=== PATIENT | female | born 1990 | race Asian ===

== ENCOUNTER → 2017-11-21 | Outpatient (CLI) | payer BC | LOC: CLAB 11:00 | PROVIDERS: ATTEND Obstetrics & Gynecology | DX: Z32.00 Encounter for pregnancy test, result unknown (principal) | CPT/HCPCS: 36415; 84702 ==

== ENCOUNTER → 2017-11-25 | Outpatient (CLI) | payer BC | LOC: CLAB 07:08 | PROVIDERS: ATTEND Obstetrics & Gynecology | DX: O03.4 Incomplete spontaneous abortion without complication (principal) | CPT/HCPCS: 36415; 84702 ==

== ENCOUNTER → 2017-12-02 | Outpatient (CLI) | payer BC | LOC: CLAB 13:05 | PROVIDERS: ATTEND Obstetrics & Gynecology | DX: O02.1 Missed abortion (principal) | CPT/HCPCS: 36415; 84702 ==

== ENCOUNTER → 2017-12-09 | Outpatient (CLI) | payer BC | LOC: CLAB 06:38 | PROVIDERS: ATTEND Obstetrics & Gynecology | DX: O02.1 Missed abortion (principal) | CPT/HCPCS: 36415; 84702 ==

== ENCOUNTER → 2017-12-16 | Outpatient (CLI) | payer BC | LOC: CLAB 06:34 | PROVIDERS: ATTEND Family Medicine | DX: O02.1 Missed abortion (principal) | CPT/HCPCS: 36415; 84702 ==

== ENCOUNTER → 2017-12-23 | Outpatient (CLI) | payer BC | LOC: CLAB 15:18 | PROVIDERS: ATTEND Obstetrics & Gynecology | DX: O02.1 Missed abortion (principal) | CPT/HCPCS: 36415; 84702 ==

== ENCOUNTER 2018-10-13 18:00 | Inpatient (IN) ==
[2018-10-13] MEDS ORDERED: Sod Chloride 0.9% Inj 1,000 ML IV.CONT PRN (19:26)
[2018-10-13] MEDS ORDERED: Sodium Chlor 0.9% Inj 500 ML IV.SIG PRN (19:26)
[2018-10-13] MEDS ORDERED: fentaNYL Citrate Inj 100 MCG/2 ML Ampul IV.PUSH PRN (19:26)
[2018-10-13] MEDS ORDERED: Citric Acid/Sodium Citrate Liq 30 ML UDC PO SCH (19:30)
[2018-10-13 19:33] LABS: Baso % (Auto) 0.2 % (0.0-2.0); Eos % (Auto) 0.1 % (0.0-4.0); Hematocrit 38.8 % (35.0-46.0); Hemoglobin 13.5 gm/dL (11.6-15.3); Lymph # (Auto) 1.8 th/mm3 (1.0-4.8); Lymph % (Auto) 25.9 % (9.0-44.0); Mean Corpuscular HGB Conc 34.9 % (32.0-36.0); Mean Corpuscular Hemoglobin 31.8 pg (27.0-34.0); Mean Corpuscular Volume 91.2 fL (80.0-100.0); Mean Platelet Volume 11.3 fL (7.0-11.0); Mono # (Auto) 0.6 th/mm3 (0.0-0.9); Mono % (Auto) 7.8 % (0.0-8.0); Neut # (Auto) 4.7 th/mm3 (1.8-7.7); Platelet Count 134 th/mm3 (150-450); Red Blood Count 4.25 mil/mm3 (4.00-5.30); Red Cell Distribution Width 13.9 % (11.6-17.2); White Blood Count 7.1 th/mm3 (4.0-11.0)
[2018-10-13 19:49] LABS: Bacteria,Urine Occasional /hpf; Bilirubin,Urine Negative (Negative); Calcium Oxalate Crystals,Urine Occasional /hpf; Clarity,Urine Cloudy (Clear); Color,Urine Yellow (Yellw/Straw); Glucose,Urine (UA) 500 or Greater mg/dL (Negative); Leukocyte Esterase,Urine Small (Negative); Mucus,Urine Few /lpf (Occasional); Nitrite,Urine Negative (Negative); Squamous Epithelial Cell,Urine 23 /hpf (0-5)
[2018-10-13 19:51] LABS: Urobilinogen,Urine 0.2 mg/dL (Less than 2)
[2018-10-13] MEDS ORDERED: Oxytocin 30 Units/500ml Premix 30 UNITS/500 ML BAG IV.SIG ONE (20:00)
[2018-10-14] MEDS ORDERED: Morphine Sulfate PF Inj 5 MG/10 ML Ampul ONE (03:56)
[2018-10-14] MEDS ORDERED: Oxytocin 30 Units/500ml Premix 30 UNITS/500 ML BAG IV.CONT PRN ×2 (06:10→12:00)
[2018-10-14] MEDS: fentaNYL Citrate Inj 100 MCG/2 ML Ampul IV.PUSH PRN ×2 (06:48→07:49)
--- NOTE | 2018-10-14 07:55 | MH ---
cc: Manuel Vazquez MD DATE OF ADMISSION: 10/13/2018 ADMITTING DIAGNOSIS: Term . HISTORY OF PRESENT ILLNESS: The patient is a 27-year-old , Citizen Of [place] female, para 0-0-1-0, with LMP of 01/08/2018, EDC of 10/15/2018. Patient now admitted for induction per request. PAST SURGICAL HISTORY: Breast augmentation in 2014. MEDICATIONS: Vitamins. ALLERGIES: NONE. TRANSFUSIONS: None. OBSTETRIC HISTORY: Ectopic treated in November 2017 with methotrexate. SOCIAL HISTORY: She is . She is a dentist. Alcohol, tobacco and drugs are none. FAMILY HISTORY: Noncontributory. REVIEW OF SYSTEMS: Negative. PHYSICAL EXAMINATION: GENERAL: She is a well-nourished, well-developed, Citizen [place] female. VITAL SIGNS: Stable. HEENT: Normal. CHEST: Clear. HEART: Regular rate. BREASTS: Symmetrical. ABDOMEN: Gravid. EFW is about 2800 grams. PELVIC: Cervix is closed, but soft. EXTREMITIES: Normal. ASSESSMENT: As above. She is now admitted for Cervidil tonight and Pitocin tomorrow. Her strep culture is negative. Should she have failure to progress or distress, she is aware she may need a delivery. Patient elects to proceed. Manuel Vazquez MD JAW/es , 03:42 PM , 03:47 PM
[2018-10-14] MEDS ORDERED: fentaNYL 2MCG-Bupiv 0.125% Epi 150 ML EPIDURAL ONE (08:28)
[2018-10-14] MEDS ORDERED: Lidocaine PF 1% Inj 5 ML Vial ONE (09:12)
[2018-10-14] MEDS ORDERED: Sodium Chlor 0.9% Inj 10 ML ONE (09:12)
[2018-10-14] MEDS ORDERED: Lidocaaine 1.5%/Epinephrine 1:200,000 PF Inj 5 ML Amp ONE (09:12)
[2018-10-14] MEDS ORDERED: Naloxone Inj 0.4 MG/ML Vial IV.PUSH PRN (11:02)
[2018-10-14] MEDS ORDERED: Benzocaine 20% Top Spray 60 ML Can TOPICAL PRN (11:02)
[2018-10-14] MEDS ORDERED: Bisacodyl 10 MG Supp RECTAL PRN (11:02)
[2018-10-14] MEDS ORDERED: Acetaminophen 325 MG Tablet PO PRN (11:02)
[2018-10-14] MEDS ORDERED: Witch Hazel 50%/Glyderin 12.5% 40 Pad Jar RECTAL PRN (11:02)
--- NOTE | 2018-10-14 11:27 | MP ---
cc: Manuel Vazquez MD DATE OF OPERATION: 10/14/2018 INDICATIONS: The patient is a 27-year-old, , [place] female, para 0-0-1-0, admitted at term for induction per request. She received epidural anesthesia, progressed to a spontaneous vaginal delivery over a small midline episiotomy with a valve vigorous male, Apgars 8 and 9, weight 6 pounds 8 ounces. Following delivery of the head the mouth was suctioned, nuchal cord reduced, and delivered easily. The baby was placed on the mom's abdomen. Cord clamped and cut. Cord blood collected for preservation per patient request and cord segment for preservation. Cord blood saved for typing. Placenta delivered intact 3 vessels. The small episiotomy repaired in layers, 2-0 chromic. A small left perivaginal tear is repaired with a running 3-0 Vicryl post. Inspection revealed intact vagina, perineum, and cervix with no bleeding. Uterus was U -3 firm. Counts were correct. ESTIMATED BLOOD LOSS: About 300 mL. Manuel Vazquez MD [facility]/ , 11:05 AM , 11:12 AM
[2018-10-14] MEDS ORDERED: fentaNYL 2MCG-Bupiv 0.125% Epi 150 ML EPIDURAL PRN (12:34)
[2018-10-14 12:43] VITALS: RESP 18
[2018-10-14] MEDS ORDERED: fentaNYL Citrate Inj 100 MCG/2 ML Ampul EPIDURAL ONE (12:45)
[2018-10-14] MEDS ORDERED: Measles/Mumps/Rubella Vaccine Inj 0.5 ML Vial SQ ONE (16:00)
[2018-10-14] MEDS ORDERED: Diphtheria/Tetanus/Pertussis Vaccine Inj 0.5 ML Syringe IM ONE (16:00)
[2018-10-14] MEDS ORDERED: Zolpidem Tartrate 5 MG Tablet PO PRN (21:00)
[2018-10-14] MEDS: Senna/Docusate Sodium 8.6/50 MG Tablet PO SCH (23:13)
[2018-10-14 23:42] VITALS: PULSE 80
[2018-10-15 08:06] VITALS: BP 105/65; TEMP 98
[2018-10-15] MEDS: Senna/Docusate Sodium 8.6/50 MG Tablet PO SCH (09:59)
--- NOTE | 2018-10-15 11:03 | MD ---
cc: Manuel Vazquez MD DATE OF DISCHARGE: 10/15/2018 ADMITTING DIAGNOSIS: Term . DISCHARGE DIAGNOSES: 1. Term . 2. Delivered. HISTORY OF PRESENT ILLNESS: The patient is a 27-year-old [place] female, para 0-0-1-0, with LMP 01/08/2018, EDC of 10/15/2018. Her course was benign. She progressed to term and requested admission for delivery. She received Cervidil on the night of admission and switched to Pitocin the next day and progressed to a spontaneous vaginal delivery over a small midline episiotomy a viable vigorous male, Apgars were 8 and 9. weight was 6 pounds 8 ounces. did well. Discharged home in good condition on 10/15/2017. Her blood type is positive and her strep culture was negative. She was advised NPV, light activity, return to see me in 10 days for cervix check and to call if any abnormal symptoms. She will take Motrin and Tylenol for pain relief and she is . The baby is doing well. Manuel Vazquez MD JAW/sb , 08:43 AM , 08:47 AM
== END 2018-10-15 17:18 | disposition home or self-care (01) | DRG 807 ==
LOC: H2E 18:00 → H1EA 10-14 12:39
PROVIDERS: ADMIT Obstetrics & Gynecology; ATTEND Obstetrics & Gynecology
CPT/HCPCS: 59025; 81001; 85025; 86900; 86901; 90715; J2274; J2590; J3010; J7120